=== PATIENT | female | born 1930 | race Caucasian/White ===

== ENCOUNTER 2017-04-22 11:27 | Inpatient (IN) | payer MEDICARE, BC ==
[2017-04-22] MEDS: SODIUM CHLORIDE 0.9% 1L BAG IV* (13:15)
[2017-04-22] MEDS: CEFEPIME 2GM/50 ML (PMX) 50 ML IVPB (13:15)
[2017-04-22] MEDS: HYDROCORTISONE 100 MG INJ IV (13:15)
[2017-04-22 13:26] LABS: ADD MAN DIFF? NO
[2017-04-22] MEDS: ACETAMINOPHEN 325 MG TAB PO (13:27)
[2017-04-22 13:29] LABS: BASOPHIL # 0.1 10^3/ul (0.0-0.1); BASOPHILS % 0.5 % (0.0-2.0); EOSINOPHILS # 0.1 10^3/ul (0.0-0.5); EOSINOPHILS % 0.5 % (0.0-7.0); HEMATOCRIT 43.9 % (37.0-47.0); HEMOGLOBIN 14.9 g/dl (12.0-16.0); LYMPHOCYTES # 0.9 10^3/ul (0.8-2.9); LYMPHOCYTES % 9.7 % (15.0-51.0); MEAN CORPUSCULAR HEMOGLOBIN 28.4 pg (29.0-33.0); MEAN CORPUSCULAR HGB CONC 33.9 g/dl (32.0-37.0); MEAN CORPUSCULAR VOLUME 83.6 fl (82.0-101.0); MEAN PLATELET VOLUME 10.5 fl (7.4-10.4); MONOCYTE # 0.6 10^3/ul (0.3-0.9); MONOCYTES % 6.9 % (0.0-11.0); NEUTROPHIL # 7.6 10^3/ul (1.6-7.5); NEUTROPHILS % 81.9 % (39.0-77.0); PLATELET COUNT 184 10^3/UL (140-415); RED BLOOD COUNT 5.25 10^6/ul (4.20-5.40); RED CELL DISTRIBUTION WIDTH 13.5 % (11.5-14.5)
[2017-04-22 13:29] LABS: WHITE BLOOD COUNT 9.3 10^3/ul (4.8-10.8)
[2017-04-22 13:57] LABS: ADD UMIC YES; UR ASCORBIC ACID NEGATIVE (NEGATIVE); UR BACTERIA FEW /HPF (NONE SEEN); UR BILIRUBIN (Dip) NEGATIVE (NEGATIVE); UR BLOOD (Dip) 2+ mg/dL (NEGATIVE); UR CLARITY CLEAR (CLEAR); UR COLOR YELLOW (YELLOW); UR GLUCOSE (Dip) NEGATIVE (NEGATIVE); UR KETONES (Dip) NEGATIVE (NEGATIVE); UR LEUKOCYTE ESTERASE (Dip) NEGATIVE Leu/ul (NEGATIVE); UR NITRITE (Dip) NEGATIVE (NEGATIVE); UR RBC 107 /HPF (0-5); UR TOTAL PROTEIN (Dip) NEGATIVE (NEGATIVE); UR UROBILINOGEN (Dip) NEGATIVE (NEGATIVE); UR WBC 8 /HPF (0-5)
[2017-04-22] MEDS: VANCOMYCIN 1 GM (PMX) 250 ML IVPB (14:01)
[2017-04-22 14:07] LABS: LACTIC ACID 5.4 mmol/L (0.5-2.0)
[2017-04-22 14:18] LABS: PROTIME 15.4 Sec (11.9-14.9); PT RATIO 1.2
[2017-04-22 14:19] LABS: PARTIAL THROMBOPLASTIN TIME 35.1 Sec (25.0-35.0)
[2017-04-22 14:35] LABS: ALANINE AMINOTRANSFERASE 45 IU/L (13-69); ALBUMIN 3.2 g/dl (3.3-4.9); ALBUMIN/GLOBULIN RATIO 1.18; ALKALINE PHOSPHATASE 79 IU/L (42-121); ANION GAP 16 (8-16); ASPARTATE AMINO TRANSFERASE 89 IU/L (15-46); BILIRUBIN,INDIRECT 0.5 mg/dl (0-1.1); BILIRUBIN,TOTAL 0.5 mg/dl (0.2-1.3); BLOOD UREA NITROGEN 22 mg/dl (7-20); CALCIUM 7.7 mg/dl (8.4-10.2); CARBON DIOXIDE 20 mmol/L (21-31); CHLORIDE 98 mmol/L (97-110); CREATININE 1.55 mg/dl (0.44-1.00); GLUCOSE 70 mg/dl (70-220); MAGNESIUM 1.1 mg/dl (1.7-2.5); POTASSIUM 3.4 mmol/L (3.5-5.1); SODIUM 131 mmol/L (135-144); TOTAL PROTEIN 5.9 g/dl (6.1-8.1)
[2017-04-22 14:45] LABS: TROPONIN-I 0.079 ng/ml (0.00-0.12)
[2017-04-22 15:02] LABS: FREE T4 (FREE THYROXINE) 1.54 ng/dl (0.85-1.93)
[2017-04-22] MEDS: SOD CHLORIDE 0.9% 1,000 ML IV ×3 (15:03→23:07)
[2017-04-22] MEDS ORDERED: ONDANSETRON 4 MG INJ IV ×2 (15:30→16:30)
[2017-04-22] MEDS ORDERED: ACETAMINOPHEN 325 MG TAB PO (15:30)
[2017-04-22] MEDS ORDERED: POTASSIUM CHLORIDE 30 MEQ in SOD CHLORIDE 0.9% 150 ML IVPB (16:30)
[2017-04-22] MEDS: MAGNESIUM SULFATE 2 GM/50 ML 50 ML IVPB (17:38)
[2017-04-22] MEDS: POTASSIUM CHLORIDE (SR) 20 MEQ TAB PO (17:39)
[2017-04-22] MEDS: MAGNESIUM SULFATE 3 GM in DEXTROSE 5% 100 ML IVPB (18:30)
[2017-04-22] MEDS: POTASSIUM CHLORIDE 50 ML IVPB ×6 (18:30→22:00)
[2017-04-22] MEDS: CIPROFLOXACIN 400MG/D5W 200 ML IVPB (20:13)
[2017-04-22 21:02] LABS: LACTIC ACID 2.4 mmol/L (0.5-2.0)
[2017-04-22] MEDS: DEXAMETHASONE 4 MG/ML 1 ML INJ IV (21:43)
[2017-04-22] MEDS: metroNIDAZOLE 500 MG/NS (PMX) 100 ML IVPB (23:08)
[2017-04-23 06:21] LABS: ADD MAN DIFF? NO
[2017-04-23] MEDS: metroNIDAZOLE 500 MG/NS (PMX) 100 ML IVPB ×3 (06:22→21:40)
[2017-04-23 06:35] LABS: WHITE BLOOD COUNT 6.9 10^3/ul (4.8-10.8)
[2017-04-23 06:35] LABS: ABNORMAL IP MESSAGE 1; BASOPHILS % 0.1 % (0.0-2.0); HEMATOCRIT 32.2 % (37.0-47.0); HEMOGLOBIN 10.7 g/dl (12.0-16.0); LYMPHOCYTES # 0.6 10^3/ul (0.8-2.9); LYMPHOCYTES % 8.2 % (15.0-51.0); MEAN CORPUSCULAR HEMOGLOBIN 28.7 pg (29.0-33.0); MEAN CORPUSCULAR HGB CONC 33.2 g/dl (32.0-37.0); MEAN CORPUSCULAR VOLUME 86.3 fl (82.0-101.0); MEAN PLATELET VOLUME 10.8 fl (7.4-10.4); MONOCYTE # 0.3 10^3/ul (0.3-0.9); MONOCYTES % 3.6 % (0.0-11.0); NEUTROPHIL # 6.1 10^3/ul (1.6-7.5); NEUTROPHILS % 87.8 % (39.0-77.0); PLATELET COUNT 161 10^3/UL (140-415); RED BLOOD COUNT 3.73 10^6/ul (4.20-5.40); RED CELL DISTRIBUTION WIDTH 13.9 % (11.5-14.5)
[2017-04-23 06:39] LABS: POSITIVE DIFF @See below
[2017-04-23 07:10] LABS: LACTIC ACID 1.5 mmol/L (0.5-2.0)
[2017-04-23 07:23] LABS: ANION GAP 19 (8-16); BLOOD UREA NITROGEN 16 mg/dl (7-20); CALCIUM 8.2 mg/dl (8.4-10.2); CARBON DIOXIDE 17 mmol/L (21-31); CHLORIDE 108 mmol/L (97-110); CREATININE 0.84 mg/dl (0.44-1.00); GLUCOSE 155 mg/dl (70-220); MAGNESIUM 1.9 mg/dl (1.7-2.5); POTASSIUM 4.1 mmol/L (3.5-5.1); SODIUM 140 mmol/L (135-144)
[2017-04-23 07:57] LABS: HEMOGLOBIN A1C 6.4 % (0-5.9)
[2017-04-23] MEDS: DEXAMETHASONE 4 MG/ML 1 ML INJ IV (09:25)
[2017-04-23] MEDS: SOD CHLORIDE 0.9% 1,000 ML IV ×2 (09:25→18:04)
[2017-04-23] MEDS: ACETAMINOPHEN 325 MG TAB PO (10:18)
[2017-04-23] MEDS: INSULIN ASPART [NOVOLOG] 3 ML PEN SC ×3 (11:50→21:00)
[2017-04-23] MEDS ORDERED: DEXTROSE 50% 50 ML SYRINGE IV ×2 (12:00)
[2017-04-23] MEDS ORDERED: GLUCOSE GEL 15 GRAM TUBE BUCCAL (12:00)
[2017-04-23] MEDS ORDERED: GLUCAGON 1 MG INJ IM (12:00)
[2017-04-23] MEDS ORDERED: GLUCOSE GEL 15 GRAM TUBE PO ×2 (12:00)
[2017-04-23] MEDS: FLUDROCORTISONE 0.1 MG TAB PO (14:30)
[2017-04-23] MEDS: LINAGLIPTIN 5 MG TABLET PO (15:00)
[2017-04-23 15:48] LABS: IRON < 10 ug/dl (35-150)
[2017-04-23 15:52] LABS: TOTAL IRON BINDING CAPACITY 356 ug/dl (241-421)
[2017-04-23 16:18] LABS: FERRITIN 76.1 ng/ml (11.1-264.0)
[2017-04-23] MEDS: CIPROFLOXACIN 400MG/D5W 200 ML IVPB (18:02)
[2017-04-23] MEDS: TIOTROPIUM 18 MCG CAPSULE INHA DEV INH (18:02)
[2017-04-23] MEDS: CYANOCOBALAMIN 1000 MCG INJ IM (18:03)
[2017-04-23] MEDS: HYDROCORTISONE 100 MG INJ IV (21:40)
[2017-04-23] MEDS: SALMETEROL/FLUTICASONE 250/50 INHA INH (21:40)
[2017-04-23] MEDS: HYDROCORTISONE 5 MG TAB PO (21:42)
[2017-04-23] MEDS: METOPROLOL (XL) 25 MG TAB PO (21:43)
[2017-04-23] MEDS: FAMOTIDINE 20 MG TAB PO (21:43)
[2017-04-24] MEDS: SOD CHLORIDE 0.9% 1,000 ML IV ×3 (00:33→16:30)
[2017-04-24] MEDS: ACCU-CHEK XX (00:35)
[2017-04-24] MEDS: HYDROCORTISONE 100 MG INJ IV ×2 (06:11→20:58)
[2017-04-24] MEDS: LEVOTHYROXINE 75 MCG TAB PO (06:11)
[2017-04-24] MEDS: metroNIDAZOLE 500 MG/NS (PMX) 100 ML IVPB ×3 (06:12→21:10)
[2017-04-24 06:37] LABS: ADD MAN DIFF? NO
[2017-04-24 06:40] LABS: HEMATOCRIT 30.2 % (37.0-47.0); HEMOGLOBIN 10.1 g/dl (12.0-16.0); LYMPHOCYTES # 0.7 10^3/ul (0.8-2.9); MEAN CORPUSCULAR HEMOGLOBIN 28.3 pg (29.0-33.0); MEAN CORPUSCULAR HGB CONC 33.4 g/dl (32.0-37.0); MEAN CORPUSCULAR VOLUME 84.6 fl (82.0-101.0); MEAN PLATELET VOLUME 10.7 fl (7.4-10.4); MONOCYTE # 0.4 10^3/ul (0.3-0.9); MONOCYTES % 6.2 % (0.0-11.0); NEUTROPHIL # 5.4 10^3/ul (1.6-7.5); NEUTROPHILS % 83.6 % (39.0-77.0); PLATELET COUNT 155 10^3/UL (140-415); RED BLOOD COUNT 3.57 10^6/ul (4.20-5.40); RED CELL DISTRIBUTION WIDTH 14.3 % (11.5-14.5)
[2017-04-24 06:40] LABS: WHITE BLOOD COUNT 6.5 10^3/ul (4.8-10.8)
[2017-04-24 07:21] LABS: MAGNESIUM 1.6 mg/dl (1.7-2.5)
[2017-04-24 07:31] LABS: ANION GAP 14 (8-16); BLOOD UREA NITROGEN 14 mg/dl (7-20); CALCIUM 8.8 mg/dl (8.4-10.2); CARBON DIOXIDE 24 mmol/L (21-31); CHLORIDE 108 mmol/L (97-110); GLUCOSE 156 mg/dl (70-220); POTASSIUM 3.6 mmol/L (3.5-5.1); SODIUM 142 mmol/L (135-144)
[2017-04-24] MEDS: INSULIN ASPART [NOVOLOG] 3 ML PEN SC ×4 (07:55→20:59)
[2017-04-24] MEDS: TIOTROPIUM 18 MCG CAPSULE INHA DEV INH (09:00)
[2017-04-24] MEDS: FAMOTIDINE 20 MG TAB PO ×2 (09:49→20:59)
[2017-04-24] MEDS: FLUDROCORTISONE 0.1 MG TAB PO (09:49)
[2017-04-24] MEDS: METOPROLOL (XL) 25 MG TAB PO ×2 (09:49→20:58)
[2017-04-24] MEDS: LINAGLIPTIN 5 MG TABLET PO (09:49)
[2017-04-24] MEDS: SALMETEROL/FLUTICASONE 250/50 INHA INH ×2 (09:50→20:57)
[2017-04-24] MEDS: HYDROCORTISONE 5 MG TAB PO ×3 (09:50→22:45)
[2017-04-24] MEDS: PROMETHAZINE/CODEINE 5ML CUP PO ×2 (13:00→21:09)
[2017-04-24] MEDS: MAGNESIUM SULFATE 1 GM/D5W 100 ML IVPB (13:00)
[2017-04-24] MEDS: CIPROFLOXACIN 400MG/D5W 200 ML IVPB (18:15)
[2017-04-25] MEDS: SOD CHLORIDE 0.9% 1,000 ML IV ×2 (00:30→11:28)
[2017-04-25] MEDS: ACCU-CHEK XX (01:49)
[2017-04-25 05:51] LABS: ADD MAN DIFF? NO
[2017-04-25] MEDS: metroNIDAZOLE 500 MG/NS (PMX) 100 ML IVPB ×3 (06:00→22:10)
[2017-04-25] MEDS: ACETAMINOPHEN 325 MG TAB PO ×2 (06:00→20:33)
[2017-04-25] MEDS: LEVOTHYROXINE 75 MCG TAB PO (06:00)
[2017-04-25 06:04] LABS: BASOPHILS % 0.1 % (0.0-2.0); HEMATOCRIT 34.1 % (37.0-47.0); HEMOGLOBIN 11.3 g/dl (12.0-16.0); LYMPHOCYTES # 0.8 10^3/ul (0.8-2.9); LYMPHOCYTES % 8.5 % (15.0-51.0); MEAN CORPUSCULAR HEMOGLOBIN 28.2 pg (29.0-33.0); MEAN CORPUSCULAR HGB CONC 33.1 g/dl (32.0-37.0); MEAN PLATELET VOLUME 10.9 fl (7.4-10.4); MONOCYTE # 0.4 10^3/ul (0.3-0.9); MONOCYTES % 4.5 % (0.0-11.0); NEUTROPHIL # 8.1 10^3/ul (1.6-7.5); NEUTROPHILS % 86.5 % (39.0-77.0); PLATELET COUNT 140 10^3/UL (140-415); RED BLOOD COUNT 4.01 10^6/ul (4.20-5.40); RED CELL DISTRIBUTION WIDTH 14.5 % (11.5-14.5)
[2017-04-25 06:04] LABS: WHITE BLOOD COUNT 9.4 10^3/ul (4.8-10.8)
[2017-04-25] MEDS ORDERED: ALBUTEROL/IPRATROPIUM (NEB) 3 ML AMP (06:12)
[2017-04-25] MEDS: ALBUTEROL/IPRATROPIUM (NEB) 3 ML AMP HHN ×2 (06:19→19:16)
[2017-04-25] MEDS: HYDROCORTISONE 5 MG TAB PO ×3 (06:21→20:33)
[2017-04-25 06:54] LABS: ANION GAP 16 (8-16); BLOOD UREA NITROGEN 13 mg/dl (7-20); CALCIUM 8.1 mg/dl (8.4-10.2); CARBON DIOXIDE 21 mmol/L (21-31); CHLORIDE 106 mmol/L (97-110); CREATININE 0.58 mg/dl (0.44-1.00); GLUCOSE 162 mg/dl (70-220); POTASSIUM 3.1 mmol/L (3.5-5.1); SODIUM 140 mmol/L (135-144)
[2017-04-25 07:06] LABS: POSITIVE DIFF @See below
[2017-04-25 07:43] LABS: MAGNESIUM 1.4 mg/dl (1.7-2.5)
[2017-04-25] MEDS: INSULIN ASPART [NOVOLOG] 3 ML PEN SC ×4 (07:50→21:00)
[2017-04-25] MEDS: FAMOTIDINE 20 MG TAB PO ×2 (08:52→20:33)
[2017-04-25] MEDS: LINAGLIPTIN 5 MG TABLET PO (08:53)
[2017-04-25] MEDS: FLUDROCORTISONE 0.1 MG TAB PO (08:53)
[2017-04-25] MEDS: METOPROLOL (XL) 25 MG TAB PO ×2 (08:54→20:34)
[2017-04-25] MEDS: SALMETEROL/FLUTICASONE 250/50 INHA INH ×3 (11:05→20:33)
[2017-04-25] MEDS: HYDROCORTISONE 100 MG INJ IV ×2 (11:05→20:33)
[2017-04-25] MEDS ORDERED: POTASSIUM CHLORIDE (SR) 20 MEQ TAB PO (12:04)
[2017-04-25] MEDS: POTASSIUM CHLORIDE 20 MEQ POWDER FOR ORAL SOLN PO (12:34)
[2017-04-25] MEDS: TIOTROPIUM 18 MCG CAPSULE INHA DEV INH (12:35)
[2017-04-25] MEDS: MAGNESIUM SULFATE 2 GM/50 ML 50 ML IVPB (15:06)
[2017-04-25] MEDS: CIPROFLOXACIN 400MG/D5W 200 ML IVPB (18:02)
[2017-04-26] MEDS: ACCU-CHEK XX (02:00)
[2017-04-26] MEDS: ACETAMINOPHEN 325 MG TAB PO ×2 (04:57→17:51)
[2017-04-26 05:45] LABS: ADD MAN DIFF? NO
[2017-04-26 05:54] LABS: ABNORMAL IP MESSAGE 1; BASOPHILS % 0.2 % (0.0-2.0); HEMOGLOBIN 13.2 g/dl (12.0-16.0); LYMPHOCYTES # 0.6 10^3/ul (0.8-2.9); LYMPHOCYTES % 9.1 % (15.0-51.0); MEAN CORPUSCULAR HEMOGLOBIN 28.4 pg (29.0-33.0); MEAN CORPUSCULAR HGB CONC 34.7 g/dl (32.0-37.0); MEAN CORPUSCULAR VOLUME 81.9 fl (82.0-101.0); MONOCYTE # 0.3 10^3/ul (0.3-0.9); MONOCYTES % 3.9 % (0.0-11.0); NEUTROPHIL # 5.6 10^3/ul (1.6-7.5); NEUTROPHILS % 86.5 % (39.0-77.0); PLATELET COUNT 164 10^3/UL (140-415); RED BLOOD COUNT 4.64 10^6/ul (4.20-5.40); RED CELL DISTRIBUTION WIDTH 13.9 % (11.5-14.5)
[2017-04-26 05:54] LABS: WHITE BLOOD COUNT 6.5 10^3/ul (4.8-10.8)
[2017-04-26 05:57] LABS: POSITIVE DIFF @See below
[2017-04-26 06:02] LABS: PROTIME 13.3 Sec (11.9-14.9)
[2017-04-26 06:03] LABS: PARTIAL THROMBOPLASTIN TIME 29.4 Sec (25.0-35.0)
[2017-04-26 06:07] LABS: PHOSPHORUS 2.2 mg/dl (2.5-4.9)
[2017-04-26] MEDS: LEVOTHYROXINE 75 MCG TAB PO (06:20)
[2017-04-26] MEDS: HYDROCORTISONE 5 MG TAB PO ×3 (06:20→21:57)
[2017-04-26] MEDS: metroNIDAZOLE 500 MG/NS (PMX) 100 ML IVPB ×3 (06:20→23:10)
[2017-04-26 06:26] LABS: ALANINE AMINOTRANSFERASE 51 IU/L (13-69); ALBUMIN 3.6 g/dl (3.3-4.9); ALBUMIN/GLOBULIN RATIO 1.28; ALKALINE PHOSPHATASE 82 IU/L (42-121); ANION GAP 14 (8-16); ASPARTATE AMINO TRANSFERASE 77 IU/L (15-46); BILIRUBIN,INDIRECT 0.2 mg/dl (0-1.1); BILIRUBIN,TOTAL 0.2 mg/dl (0.2-1.3); BLOOD UREA NITROGEN 6 mg/dl (7-20); CALCIUM 7.9 mg/dl (8.4-10.2); CARBON DIOXIDE 32 mmol/L (21-31); CHLORIDE 92 mmol/L (97-110); CREATININE 0.53 mg/dl (0.44-1.00); GLUCOSE 133 mg/dl (70-220); SODIUM 136 mmol/L (135-144); TOTAL PROTEIN 6.4 g/dl (6.1-8.1)
[2017-04-26 06:53] LABS: POTASSIUM 1.9 mmol/L (3.5-5.1)
[2017-04-26] MEDS: INSULIN ASPART [NOVOLOG] 3 ML PEN SC ×4 (07:50→21:00)
[2017-04-26 07:59] LABS: MAGNESIUM 1.4 mg/dl (1.7-2.5)
[2017-04-26] MEDS: SALMETEROL/FLUTICASONE 250/50 INHA INH ×2 (09:16→21:59)
[2017-04-26] MEDS: HYDROCORTISONE 100 MG INJ IV ×2 (09:17→21:55)
[2017-04-26] MEDS: LINAGLIPTIN 5 MG TABLET PO (09:17)
[2017-04-26] MEDS: SODIUM CHLORIDE 0.45% IV ×2 (09:17→12:00)
[2017-04-26] MEDS: POTASSIUM CHLORIDE IV ×2 (09:17→12:00)
[2017-04-26] MEDS: TIOTROPIUM 18 MCG CAPSULE INHA DEV INH (09:18)
[2017-04-26] MEDS: FAMOTIDINE 20 MG TAB PO ×2 (09:19→21:59)
[2017-04-26] MEDS: METOPROLOL (XL) 25 MG TAB PO ×2 (09:19→22:00)
[2017-04-26] MEDS: FLUDROCORTISONE 0.1 MG TAB PO (09:20)
[2017-04-26] MEDS: CHOLESTYRAMINE 4 GM PACKET PO (10:00)
[2017-04-26] MEDS: POTASSIUM CHLORIDE (SR) 20 MEQ TAB PO ×2 (13:00→21:59)
[2017-04-26] MEDS ORDERED: POTASSIUM CHLORIDE (SR) 20 MEQ TAB PO (13:30)
[2017-04-26] MEDS: MAGNESIUM SULFATE 4 GM/100 ML 100 ML IVPB (17:35)
[2017-04-26] MEDS: CIPROFLOXACIN 400MG/D5W 200 ML IVPB (21:59)
[2017-04-27] MEDS: ACCU-CHEK XX (02:00)
[2017-04-27] MEDS: ACETAMINOPHEN 325 MG TAB PO (04:58)
[2017-04-27 05:15] LABS: ADD MAN DIFF? NO
[2017-04-27 05:18] LABS: BASOPHILS % 0.2 % (0.0-2.0); HEMATOCRIT 44.5 % (37.0-47.0); HEMOGLOBIN 15.3 g/dl (12.0-16.0); LYMPHOCYTES # 0.7 10^3/ul (0.8-2.9); LYMPHOCYTES % 18.1 % (15.0-51.0); MEAN CORPUSCULAR HEMOGLOBIN 28.1 pg (29.0-33.0); MEAN CORPUSCULAR HGB CONC 34.4 g/dl (32.0-37.0); MEAN CORPUSCULAR VOLUME 81.8 fl (82.0-101.0); MEAN PLATELET VOLUME 11.2 fl (7.4-10.4); MONOCYTE # 0.2 10^3/ul (0.3-0.9); MONOCYTES % 5.1 % (0.0-11.0); NEUTROPHIL # 3.1 10^3/ul (1.6-7.5); NEUTROPHILS % 76.1 % (39.0-77.0); PLATELET COUNT 157 10^3/UL (140-415); RED BLOOD COUNT 5.44 10^6/ul (4.20-5.40)
[2017-04-27 05:18] LABS: WHITE BLOOD COUNT 4.1 10^3/ul (4.8-10.8)
[2017-04-27 06:05] LABS: MAGNESIUM 2.2 mg/dl (1.7-2.5)
[2017-04-27 06:05] LABS: PHOSPHORUS 1.3 mg/dl (2.5-4.9)
[2017-04-27 06:11] LABS: ANION GAP 15 (8-16); BLOOD UREA NITROGEN 11 mg/dl (7-20); CALCIUM 8.3 mg/dl (8.4-10.2); CARBON DIOXIDE 35 mmol/L (21-31); CHLORIDE 89 mmol/L (97-110); CREATININE 0.64 mg/dl (0.44-1.00); GLUCOSE 118 mg/dl (70-220); SODIUM 137 mmol/L (135-144)
[2017-04-27] MEDS: metroNIDAZOLE 500 MG/NS (PMX) 100 ML IVPB ×3 (06:48→21:43)
[2017-04-27] MEDS: LEVOTHYROXINE 75 MCG TAB PO (06:48)
[2017-04-27] MEDS: HYDROCORTISONE 5 MG TAB PO ×3 (06:49→21:42)
[2017-04-27 07:20] LABS: POTASSIUM 2.2 mmol/L (3.5-5.1)
[2017-04-27] MEDS: INSULIN ASPART [NOVOLOG] 3 ML PEN SC ×4 (07:50→21:00)
[2017-04-27] MEDS: METOPROLOL (XL) 25 MG TAB PO ×2 (09:00→22:01)
[2017-04-27] MEDS: SALMETEROL/FLUTICASONE 250/50 INHA INH ×2 (09:19→20:34)
[2017-04-27] MEDS: TIOTROPIUM 18 MCG CAPSULE INHA DEV INH (09:20)
[2017-04-27] MEDS: HYDROCORTISONE 100 MG INJ IV ×2 (09:20→21:43)
[2017-04-27] MEDS: LINAGLIPTIN 5 MG TABLET PO (09:21)
[2017-04-27] MEDS: POTASSIUM CHLORIDE (SR) 20 MEQ TAB PO (09:21)
[2017-04-27] MEDS: FAMOTIDINE 20 MG TAB PO ×2 (09:21→21:42)
[2017-04-27] MEDS: FLUDROCORTISONE 0.1 MG TAB PO (09:31)
[2017-04-27] MEDS: POTASSIUM CHLORIDE 50 ML IVPB ×8 (09:43→20:34)
[2017-04-27] MEDS ORDERED: NEUTRA-PHOS 250 MG PACKET PO (10:30)
[2017-04-27] MEDS: NEUTRA-PHOS 250 MG PACKET PO ×2 (11:26→20:35)
[2017-04-27] MEDS ORDERED: POTASSIUM CHLORIDE 20 MEQ POWDER FOR ORAL SOLN PO (14:00)
[2017-04-27] MEDS: CYANOCOBALAMIN 1000 MCG INJ IM (17:25)
[2017-04-27] MEDS: CIPROFLOXACIN 500 MG TAB PO (17:26)
[2017-04-28 01:56] LABS: POTASSIUM 3.2 mmol/L (3.5-5.1)
[2017-04-28] MEDS: ACCU-CHEK XX (02:00)
[2017-04-28] MEDS: POTASSIUM CHLORIDE (SR) 20 MEQ TAB PO ×3 (03:27→22:22)
[2017-04-28 05:25] LABS: ADD MAN DIFF? NO
[2017-04-28 05:31] LABS: BASOPHILS % 0.2 % (0.0-2.0); EOSINOPHILS % 0.2 % (0.0-7.0); HEMOGLOBIN 12.7 g/dl (12.0-16.0); LYMPHOCYTES # 0.9 10^3/ul (0.8-2.9); LYMPHOCYTES % 18.3 % (15.0-51.0); MEAN CORPUSCULAR HEMOGLOBIN 28.5 pg (29.0-33.0); MEAN CORPUSCULAR HGB CONC 33.4 g/dl (32.0-37.0); MEAN CORPUSCULAR VOLUME 85.2 fl (82.0-101.0); MEAN PLATELET VOLUME 10.9 fl (7.4-10.4); MONOCYTE # 0.4 10^3/ul (0.3-0.9); MONOCYTES % 8.4 % (0.0-11.0); NEUTROPHIL # 3.5 10^3/ul (1.6-7.5); NEUTROPHILS % 72.3 % (39.0-77.0); PLATELET COUNT 180 10^3/UL (140-415); RED BLOOD COUNT 4.46 10^6/ul (4.20-5.40); RED CELL DISTRIBUTION WIDTH 14.4 % (11.5-14.5)
[2017-04-28 05:31] LABS: WHITE BLOOD COUNT 4.9 10^3/ul (4.8-10.8)
[2017-04-28 05:34] LABS: POSITIVE DIFF @See below
[2017-04-28 05:46] LABS: ANION GAP 13 (8-16); BLOOD UREA NITROGEN 17 mg/dl (7-20); CALCIUM 8.1 mg/dl (8.4-10.2); CARBON DIOXIDE 31 mmol/L (21-31); CHLORIDE 99 mmol/L (97-110); CREATININE 0.61 mg/dl (0.44-1.00); GLUCOSE 105 mg/dl (70-220); POTASSIUM 3.4 mmol/L (3.5-5.1); SODIUM 140 mmol/L (135-144)
[2017-04-28 05:51] LABS: PHOSPHORUS 2.1 mg/dl (2.5-4.9)
[2017-04-28 05:51] LABS: MAGNESIUM 1.7 mg/dl (1.7-2.5)
[2017-04-28] MEDS: metroNIDAZOLE 500 MG/NS (PMX) 100 ML IVPB ×2 (07:04→14:26)
[2017-04-28] MEDS: HYDROCORTISONE 5 MG TAB PO ×3 (07:05→22:22)
[2017-04-28] MEDS: LEVOTHYROXINE 75 MCG TAB PO (07:05)
[2017-04-28] MEDS: CIPROFLOXACIN 500 MG TAB PO (07:05)
[2017-04-28] MEDS: INSULIN ASPART [NOVOLOG] 3 ML PEN SC ×4 (07:50→21:00)
[2017-04-28] MEDS: CHOLESTYRAMINE 4 GM PACKET PO (09:00)
[2017-04-28] MEDS: SALMETEROL/FLUTICASONE 250/50 INHA INH ×2 (10:07→21:00)
[2017-04-28] MEDS: TIOTROPIUM 18 MCG CAPSULE INHA DEV INH (10:09)
[2017-04-28] MEDS: FAMOTIDINE 20 MG TAB PO (10:10)
[2017-04-28] MEDS: LINAGLIPTIN 5 MG TABLET PO (10:10)
[2017-04-28] MEDS: HYDROCORTISONE 100 MG INJ IV ×2 (10:11→22:21)
[2017-04-28] MEDS: FLUDROCORTISONE 0.1 MG TAB PO (10:12)
[2017-04-28] MEDS: NEUTRA-PHOS 250 MG PACKET PO ×3 (10:13→22:22)
[2017-04-28] MEDS: METOPROLOL (XL) 25 MG TAB PO ×2 (10:13→22:25)
[2017-04-28] MEDS: CEFTRIAXONE 1 GM/50 ML (PMX) 50 ML IVPB (17:17)
[2017-04-29] MEDS: ACCU-CHEK XX (01:52)
[2017-04-29 05:13] LABS: HEMATOCRIT 34.6 % (37.0-47.0); HEMOGLOBIN 11.4 g/dl (12.0-16.0); MEAN CORPUSCULAR HEMOGLOBIN 28.2 pg (29.0-33.0); MEAN CORPUSCULAR HGB CONC 32.9 g/dl (32.0-37.0); MEAN CORPUSCULAR VOLUME 85.6 fl (82.0-101.0); MEAN PLATELET VOLUME 10.3 fl (7.4-10.4); PLATELET COUNT 205 10^3/UL (140-415); RED BLOOD COUNT 4.04 10^6/ul (4.20-5.40); RED CELL DISTRIBUTION WIDTH 14.4 % (11.5-14.5)
[2017-04-29 05:13] LABS: WHITE BLOOD COUNT 4.4 10^3/ul (4.8-10.8)
[2017-04-29 05:27] LABS: POSITIVE DIFF @See below
[2017-04-29 05:28] LABS: ADD MAN DIFF? YES
[2017-04-29 05:33] LABS: ANION GAP 12 (8-16); BLOOD UREA NITROGEN 17 mg/dl (7-20); CALCIUM 7.8 mg/dl (8.4-10.2); CARBON DIOXIDE 28 mmol/L (21-31); CHLORIDE 106 mmol/L (97-110); CREATININE 0.48 mg/dl (0.44-1.00); GLUCOSE 102 mg/dl (70-220); POTASSIUM 4.2 mmol/L (3.5-5.1); SODIUM 142 mmol/L (135-144)
[2017-04-29 06:07] LABS: PHOSPHORUS 2.5 mg/dl (2.5-4.9)
[2017-04-29 06:07] LABS: MAGNESIUM 1.5 mg/dl (1.7-2.5)
[2017-04-29] MEDS: LEVOTHYROXINE 75 MCG TAB PO (06:31)
[2017-04-29] MEDS: HYDROCORTISONE 5 MG TAB PO ×3 (06:31→20:52)
[2017-04-29] MEDS: INSULIN ASPART [NOVOLOG] 3 ML PEN SC ×4 (07:50→20:54)
[2017-04-29] MEDS: LINAGLIPTIN 5 MG TABLET PO (09:20)
[2017-04-29] MEDS: NEUTRA-PHOS 250 MG PACKET PO ×3 (09:21→20:52)
[2017-04-29] MEDS: FLUDROCORTISONE 0.1 MG TAB PO (09:21)
[2017-04-29] MEDS: TIOTROPIUM 18 MCG CAPSULE INHA DEV INH (09:21)
[2017-04-29] MEDS: HYDROCORTISONE 100 MG INJ IV ×2 (09:22→21:00)
[2017-04-29] MEDS: SALMETEROL/FLUTICASONE 250/50 INHA INH ×2 (09:22→20:51)
[2017-04-29] MEDS: CHOLESTYRAMINE 4 GM PACKET PO (09:22)
[2017-04-29] MEDS: METOPROLOL (XL) 25 MG TAB PO ×2 (09:23→20:54)
[2017-04-29 11:07] LABS: BAND NEUTROPHILS #M 0.1 10^3/ul (0.0-0.6); BAND NEUTROPHILS % (M) 3 % (0-4); BURR CELLS 1+ (0-0); LYMPHOCYTES #M 1.1 10^3/ul (0.8-2.9); LYMPHOCYTES % (M) 26 % (15-51); MONOCYTE #M 0.1 10^3/ul (0.3-0.9); MONOCYTES % (M) 4 % (0-11); PLATELET ESTIMATE NORMAL; POIKILOCYTOSIS 1+ (0-0); REACTIVE LYMPHOCYTES% (M) 1 % (0-0); SEG NEUT #M 2.9 10^3/ul (1.7-7.5); SEGMENTED NEUTROPHILS (M) % 66 % (39-77); SMUDGE%M 12 % (0-0)
[2017-04-29] MEDS: MAGNESIUM SULFATE 3 GM in DEXTROSE 5% 100 ML IVPB (12:33)
[2017-04-29] MEDS: CEFTRIAXONE 1 GM/50 ML (PMX) 50 ML IVPB (16:49)
[2017-04-30] MEDS: ACCU-CHEK XX (02:00)
[2017-04-30 06:04] LABS: ANION GAP 10 (8-16); BLOOD UREA NITROGEN 15 mg/dl (7-20); CALCIUM 8.2 mg/dl (8.4-10.2); CARBON DIOXIDE 32 mmol/L (21-31); CHLORIDE 100 mmol/L (97-110); CREATININE 0.44 mg/dl (0.44-1.00); GLUCOSE 133 mg/dl (70-220); MAGNESIUM 1.7 mg/dl (1.7-2.5); PHOSPHORUS 3.4 mg/dl (2.5-4.9); POTASSIUM 3.2 mmol/L (3.5-5.1); SODIUM 139 mmol/L (135-144)
[2017-04-30] MEDS: LEVOTHYROXINE 75 MCG TAB PO (06:25)
[2017-04-30] MEDS: HYDROCORTISONE 5 MG TAB PO ×3 (06:29→21:12)
[2017-04-30] MEDS: LINAGLIPTIN 5 MG TABLET PO (09:23)
[2017-04-30] MEDS: TIOTROPIUM 18 MCG CAPSULE INHA DEV INH (09:23)
[2017-04-30] MEDS: CHOLESTYRAMINE 4 GM PACKET PO (09:24)
[2017-04-30] MEDS: SALMETEROL/FLUTICASONE 250/50 INHA INH ×2 (09:24→21:12)
[2017-04-30] MEDS: METOPROLOL (XL) 25 MG TAB PO (09:24)
[2017-04-30] MEDS: NEUTRA-PHOS 250 MG PACKET PO ×3 (09:24→21:11)
[2017-04-30] MEDS: HYDROCORTISONE 100 MG INJ IV (09:24)
[2017-04-30] MEDS: FLUDROCORTISONE 0.1 MG TAB PO (09:25)
[2017-04-30] MEDS: INSULIN ASPART [NOVOLOG] 3 ML PEN SC ×4 (09:26→21:00)
[2017-04-30] MEDS: POTASSIUM CHLORIDE 50 ML IVPB ×3 (12:22→14:55)
[2017-04-30] MEDS: POTASSIUM CHLORIDE (SR) 20 MEQ TAB PO (15:40)
[2017-04-30] MEDS: CEFTRIAXONE 1 GM/50 ML (PMX) 50 ML IVPB (15:40)
[2017-04-30] MEDS: MAGNESIUM OXIDE 400 MG TAB PO (21:12)
[2017-04-30] MEDS: VERAPAMIL (SR) 180 MG TAB PO (22:22)
[2017-05-01] MEDS: ACCU-CHEK XX (02:00)
[2017-05-01] MEDS: LEVOTHYROXINE 75 MCG TAB PO (06:07)
[2017-05-01 06:11] LABS: ANION GAP 11 (8-16); BLOOD UREA NITROGEN 15 mg/dl (7-20); CALCIUM 8.1 mg/dl (8.4-10.2); CARBON DIOXIDE 31 mmol/L (21-31); CHLORIDE 101 mmol/L (97-110); CREATININE 0.45 mg/dl (0.44-1.00); GLUCOSE 87 mg/dl (70-220); MAGNESIUM 1.5 mg/dl (1.7-2.5); PHOSPHORUS 3.3 mg/dl (2.5-4.9); POTASSIUM 3.2 mmol/L (3.5-5.1); SODIUM 140 mmol/L (135-144)
[2017-05-01] MEDS: INSULIN ASPART [NOVOLOG] 3 ML PEN SC ×4 (07:50→21:00)
[2017-05-01] MEDS: HYDROCORTISONE 5 MG TAB PO ×3 (08:06→21:22)
[2017-05-01] MEDS: CHOLESTYRAMINE 4 GM PACKET PO (09:00)
[2017-05-01] MEDS: NEUTRA-PHOS 250 MG PACKET PO ×3 (09:23→21:21)
[2017-05-01] MEDS: FLUDROCORTISONE 0.1 MG TAB PO (09:23)
[2017-05-01] MEDS: MAGNESIUM OXIDE 400 MG TAB PO ×2 (09:24→21:22)
[2017-05-01] MEDS: LINAGLIPTIN 5 MG TABLET PO (09:24)
[2017-05-01] MEDS: SALMETEROL/FLUTICASONE 250/50 INHA INH ×2 (09:25→21:24)
[2017-05-01] MEDS: TIOTROPIUM 18 MCG CAPSULE INHA DEV INH (09:25)
[2017-05-01] MEDS: MAGNESIUM SULFATE 4 GM/100 ML 100 ML IVPB (12:17)
[2017-05-01] MEDS: POTASSIUM CHLORIDE (SR) 20 MEQ TAB PO ×2 (12:53→21:22)
[2017-05-01] MEDS: CEFTRIAXONE 1 GM/50 ML (PMX) 50 ML IVPB (16:44)
[2017-05-01] MEDS ORDERED: LOPERAMIDE 2 MG CAP PO (17:30)
[2017-05-01] MEDS: VERAPAMIL (SR) 180 MG TAB PO (21:23)
[2017-05-02] MEDS: ACCU-CHEK XX (02:00)
[2017-05-02 05:50] LABS: ADD MAN DIFF? NO
[2017-05-02] MEDS: LEVOTHYROXINE 75 MCG TAB PO (06:01)
[2017-05-02 06:05] LABS: BASOPHILS % 0.1 % (0.0-2.0); EOSINOPHILS % 0.4 % (0.0-7.0); HEMATOCRIT 33.7 % (37.0-47.0); HEMOGLOBIN 10.8 g/dl (12.0-16.0); LYMPHOCYTES # 1.4 10^3/ul (0.8-2.9); LYMPHOCYTES % 19.6 % (15.0-51.0); MEAN CORPUSCULAR HEMOGLOBIN 27.8 pg (29.0-33.0); MEAN CORPUSCULAR VOLUME 86.9 fl (82.0-101.0); MEAN PLATELET VOLUME 10.8 fl (7.4-10.4); MONOCYTE # 0.7 10^3/ul (0.3-0.9); MONOCYTES % 10.1 % (0.0-11.0); NEUTROPHIL # 4.8 10^3/ul (1.6-7.5); NEUTROPHILS % 68.9 % (39.0-77.0); PLATELET COUNT 339 10^3/UL (140-415); RED BLOOD COUNT 3.88 10^6/ul (4.20-5.40); RED CELL DISTRIBUTION WIDTH 14.4 % (11.5-14.5)
[2017-05-02 06:53] LABS: ANION GAP 13 (8-16); BLOOD UREA NITROGEN 18 mg/dl (7-20); CARBON DIOXIDE 29 mmol/L (21-31); CHLORIDE 104 mmol/L (97-110); GLUCOSE 114 mg/dl (70-220); MAGNESIUM 2.1 mg/dl (1.7-2.5); PHOSPHORUS 3.4 mg/dl (2.5-4.9); POTASSIUM 4.4 mmol/L (3.5-5.1); SODIUM 142 mmol/L (135-144)
[2017-05-02] MEDS: INSULIN ASPART [NOVOLOG] 3 ML PEN SC ×4 (07:50→20:11)
[2017-05-02] MEDS: LINAGLIPTIN 5 MG TABLET PO (08:35)
[2017-05-02] MEDS: MAGNESIUM OXIDE 400 MG TAB PO (08:35)
[2017-05-02] MEDS: TIOTROPIUM 18 MCG CAPSULE INHA DEV INH (08:35)
[2017-05-02] MEDS: POTASSIUM CHLORIDE (SR) 20 MEQ TAB PO (08:35)
[2017-05-02] MEDS: CHOLESTYRAMINE 4 GM PACKET PO (08:36)
[2017-05-02] MEDS: SALMETEROL/FLUTICASONE 250/50 INHA INH ×2 (08:36→20:09)
[2017-05-02] MEDS: FLUDROCORTISONE 0.1 MG TAB PO (08:36)
[2017-05-02] MEDS: HYDROCORTISONE 5 MG TAB PO ×3 (08:36→20:10)
[2017-05-02] MEDS: NEUTRA-PHOS 250 MG PACKET PO (08:37)
[2017-05-02] MEDS: VERAPAMIL (SR) 180 MG TAB PO (20:10)
[2017-05-03] MEDS: ACCU-CHEK XX (02:00)
[2017-05-03 05:58] LABS: ADD MAN DIFF? NO
[2017-05-03 05:59] LABS: WHITE BLOOD COUNT 7.2 10^3/ul (4.8-10.8)
[2017-05-03 05:59] LABS: BASOPHILS % 0.3 % (0.0-2.0); EOSINOPHILS # 0.1 10^3/ul (0.0-0.5); EOSINOPHILS % 1.3 % (0.0-7.0); HEMATOCRIT 31.9 % (37.0-47.0); HEMOGLOBIN 10.4 g/dl (12.0-16.0); LYMPHOCYTES # 1.6 10^3/ul (0.8-2.9); LYMPHOCYTES % 22.8 % (15.0-51.0); MEAN CORPUSCULAR HGB CONC 32.6 g/dl (32.0-37.0); MEAN PLATELET VOLUME 10.3 fl (7.4-10.4); MONOCYTE # 0.6 10^3/ul (0.3-0.9); MONOCYTES % 8.6 % (0.0-11.0); NEUTROPHIL # 4.8 10^3/ul (1.6-7.5); NEUTROPHILS % 65.9 % (39.0-77.0); PLATELET COUNT 391 10^3/UL (140-415); RED BLOOD COUNT 3.71 10^6/ul (4.20-5.40); RED CELL DISTRIBUTION WIDTH 14.6 % (11.5-14.5)
[2017-05-03] MEDS: LEVOTHYROXINE 75 MCG TAB PO (06:29)
[2017-05-03] MEDS: PROMETHAZINE/CODEINE 5ML CUP PO (06:29)
[2017-05-03 06:48] LABS: ANION GAP 13 (8-16); BLOOD UREA NITROGEN 13 mg/dl (7-20); CALCIUM 8.5 mg/dl (8.4-10.2); CARBON DIOXIDE 27 mmol/L (21-31); CHLORIDE 101 mmol/L (97-110); CREATININE 0.51 mg/dl (0.44-1.00); GLUCOSE 128 mg/dl (70-220); MAGNESIUM 1.6 mg/dl (1.7-2.5); PHOSPHORUS 3.4 mg/dl (2.5-4.9); POTASSIUM 4.3 mmol/L (3.5-5.1); SODIUM 137 mmol/L (135-144)
[2017-05-03] MEDS: INSULIN ASPART [NOVOLOG] 3 ML PEN SC ×4 (07:50→20:22)
[2017-05-03] MEDS: SALMETEROL/FLUTICASONE 250/50 INHA INH ×2 (10:40→20:22)
[2017-05-03] MEDS: TIOTROPIUM 18 MCG CAPSULE INHA DEV INH (10:41)
[2017-05-03] MEDS: CHOLESTYRAMINE 4 GM PACKET PO (10:42)
[2017-05-03] MEDS: LINAGLIPTIN 5 MG TABLET PO (10:42)
[2017-05-03] MEDS: HYDROCORTISONE 5 MG TAB PO ×3 (10:42→20:22)
[2017-05-03] MEDS: FLUDROCORTISONE 0.1 MG TAB PO (10:42)
[2017-05-03] MEDS: MAGNESIUM SULFATE 2 GM/50 ML 50 ML IVPB (14:25)
[2017-05-03] MEDS: VERAPAMIL (SR) 180 MG TAB PO (20:22)
[2017-05-04] MEDS: ACCU-CHEK XX (01:29)
[2017-05-04] MEDS: PROMETHAZINE/CODEINE 5ML CUP PO (04:47)
[2017-05-04] MEDS: LEVOTHYROXINE 75 MCG TAB PO (04:48)
[2017-05-04 05:42] LABS: ADD MAN DIFF? NO
[2017-05-04 05:48] LABS: WHITE BLOOD COUNT 8.3 10^3/ul (4.8-10.8)
[2017-05-04 05:48] LABS: BASOPHILS % 0.4 % (0.0-2.0); EOSINOPHILS # 0.1 10^3/ul (0.0-0.5); EOSINOPHILS % 0.6 % (0.0-7.0); HEMATOCRIT 31.6 % (37.0-47.0); HEMOGLOBIN 10.2 g/dl (12.0-16.0); LYMPHOCYTES # 1.7 10^3/ul (0.8-2.9); LYMPHOCYTES % 20.7 % (15.0-51.0); MEAN CORPUSCULAR HGB CONC 32.3 g/dl (32.0-37.0); MEAN CORPUSCULAR VOLUME 86.8 fl (82.0-101.0); MEAN PLATELET VOLUME 10.4 fl (7.4-10.4); MONOCYTE # 0.7 10^3/ul (0.3-0.9); MONOCYTES % 8.3 % (0.0-11.0); NEUTROPHIL # 5.7 10^3/ul (1.6-7.5); PLATELET COUNT 455 10^3/UL (140-415); RED BLOOD COUNT 3.64 10^6/ul (4.20-5.40); RED CELL DISTRIBUTION WIDTH 14.8 % (11.5-14.5)
[2017-05-04 06:15] LABS: ANION GAP 14 (8-16); BLOOD UREA NITROGEN 20 mg/dl (7-20); CALCIUM 8.4 mg/dl (8.4-10.2); CARBON DIOXIDE 26 mmol/L (21-31); CHLORIDE 101 mmol/L (97-110); CREATININE 0.56 mg/dl (0.44-1.00); GLUCOSE 98 mg/dl (70-220); MAGNESIUM 1.9 mg/dl (1.7-2.5); POTASSIUM 4.4 mmol/L (3.5-5.1); SODIUM 137 mmol/L (135-144)
[2017-05-04] MEDS: INSULIN ASPART [NOVOLOG] 3 ML PEN SC ×4 (07:50→20:23)
[2017-05-04] MEDS: HYDROCORTISONE 5 MG TAB PO ×3 (08:31→20:13)
[2017-05-04] MEDS: TIOTROPIUM 18 MCG CAPSULE INHA DEV INH (08:33)
[2017-05-04] MEDS: SALMETEROL/FLUTICASONE 250/50 INHA INH ×2 (08:33→20:24)
[2017-05-04] MEDS: FLUDROCORTISONE 0.1 MG TAB PO (08:40)
[2017-05-04] MEDS: LINAGLIPTIN 5 MG TABLET PO (08:43)
[2017-05-04] MEDS: CHOLESTYRAMINE 4 GM PACKET PO (08:44)
[2017-05-04] MEDS: VERAPAMIL (SR) 180 MG TAB PO (20:13)
[2017-05-05] MEDS: PROMETHAZINE/CODEINE 5ML CUP PO (00:47)
[2017-05-05] MEDS: ACCU-CHEK XX (00:59)
[2017-05-05 05:30] LABS: ADD MAN DIFF? NO
[2017-05-05 05:35] LABS: BASOPHILS % 0.4 % (0.0-2.0); EOSINOPHILS # 0.1 10^3/ul (0.0-0.5); EOSINOPHILS % 1.2 % (0.0-7.0); HEMATOCRIT 30.2 % (37.0-47.0); LYMPHOCYTES # 1.9 10^3/ul (0.8-2.9); LYMPHOCYTES % 25.7 % (15.0-51.0); MEAN CORPUSCULAR HEMOGLOBIN 28.3 pg (29.0-33.0); MEAN CORPUSCULAR HGB CONC 33.1 g/dl (32.0-37.0); MEAN CORPUSCULAR VOLUME 85.6 fl (82.0-101.0); MONOCYTE # 0.8 10^3/ul (0.3-0.9); MONOCYTES % 10.9 % (0.0-11.0); NEUTROPHIL # 4.5 10^3/ul (1.6-7.5); PLATELET COUNT 506 10^3/UL (140-415); RED BLOOD COUNT 3.53 10^6/ul (4.20-5.40); RED CELL DISTRIBUTION WIDTH 14.8 % (11.5-14.5)
[2017-05-05 05:35] LABS: WHITE BLOOD COUNT 7.3 10^3/ul (4.8-10.8)
[2017-05-05] MEDS: LEVOTHYROXINE 75 MCG TAB PO (05:38)
[2017-05-05 06:01] LABS: ANION GAP 10 (8-16); BLOOD UREA NITROGEN 18 mg/dl (7-20); CALCIUM 8.8 mg/dl (8.4-10.2); CARBON DIOXIDE 31 mmol/L (21-31); CHLORIDE 101 mmol/L (97-110); CREATININE 0.67 mg/dl (0.44-1.00); GLUCOSE 90 mg/dl (70-220); POTASSIUM 3.7 mmol/L (3.5-5.1); SODIUM 138 mmol/L (135-144)
[2017-05-05] MEDS: INSULIN ASPART [NOVOLOG] 3 ML PEN SC ×4 (09:11→21:00)
[2017-05-05] MEDS: HYDROCORTISONE 5 MG TAB PO ×3 (09:11→20:19)
[2017-05-05] MEDS: FLUDROCORTISONE 0.1 MG TAB PO (09:12)
[2017-05-05] MEDS: LINAGLIPTIN 5 MG TABLET PO (09:12)
[2017-05-05] MEDS: SALMETEROL/FLUTICASONE 250/50 INHA INH ×2 (09:12→20:19)
[2017-05-05] MEDS: CHOLESTYRAMINE 4 GM PACKET PO (09:12)
[2017-05-05] MEDS: TIOTROPIUM 18 MCG CAPSULE INHA DEV INH (14:04)
[2017-05-05] MEDS: VERAPAMIL (SR) 180 MG TAB PO (20:21)
[2017-05-06] MEDS: ACCU-CHEK XX (01:56)
[2017-05-06 05:12] LABS: ADD MAN DIFF? NO
[2017-05-06 05:18] LABS: WHITE BLOOD COUNT 7.9 10^3/ul (4.8-10.8)
[2017-05-06 05:18] LABS: BASOPHILS % 0.5 % (0.0-2.0); EOSINOPHILS # 0.1 10^3/ul (0.0-0.5); EOSINOPHILS % 1.3 % (0.0-7.0); LYMPHOCYTES # 1.9 10^3/ul (0.8-2.9); LYMPHOCYTES % 23.9 % (15.0-51.0); MEAN CORPUSCULAR HEMOGLOBIN 28.7 pg (29.0-33.0); MEAN CORPUSCULAR HGB CONC 33.3 g/dl (32.0-37.0); MEAN CORPUSCULAR VOLUME 86.2 fl (82.0-101.0); MEAN PLATELET VOLUME 9.6 fl (7.4-10.4); MONOCYTE # 0.8 10^3/ul (0.3-0.9); MONOCYTES % 10.2 % (0.0-11.0); NEUTROPHILS % 63.3 % (39.0-77.0); PLATELET COUNT 514 10^3/UL (140-415); RED BLOOD COUNT 3.48 10^6/ul (4.20-5.40); RED CELL DISTRIBUTION WIDTH 14.8 % (11.5-14.5)
[2017-05-06 05:41] LABS: ANION GAP 13 (8-16); BLOOD UREA NITROGEN 19 mg/dl (7-20); CALCIUM 8.5 mg/dl (8.4-10.2); CARBON DIOXIDE 28 mmol/L (21-31); CHLORIDE 103 mmol/L (97-110); CREATININE 0.55 mg/dl (0.44-1.00); GLUCOSE 95 mg/dl (70-220); POTASSIUM 3.6 mmol/L (3.5-5.1); SODIUM 140 mmol/L (135-144)
[2017-05-06] MEDS: LEVOTHYROXINE 75 MCG TAB PO (05:56)
[2017-05-06] MEDS: INSULIN ASPART [NOVOLOG] 3 ML PEN SC ×4 (07:50→21:00)
[2017-05-06] MEDS: HYDROCORTISONE 5 MG TAB PO ×3 (08:36→20:51)
[2017-05-06] MEDS: LINAGLIPTIN 5 MG TABLET PO (08:36)
[2017-05-06] MEDS: FLUDROCORTISONE 0.1 MG TAB PO (08:36)
[2017-05-06] MEDS: SALMETEROL/FLUTICASONE 250/50 INHA INH ×2 (08:39→20:49)
[2017-05-06] MEDS: TIOTROPIUM 18 MCG CAPSULE INHA DEV INH (08:39)
[2017-05-06] MEDS: CHOLESTYRAMINE 4 GM PACKET PO (08:39)
[2017-05-06] MEDS: VERAPAMIL (SR) 180 MG TAB PO (20:50)
[2017-05-07] MEDS: ACCU-CHEK XX (00:07)
[2017-05-07] MEDS: LEVOTHYROXINE 75 MCG TAB PO (06:46)
[2017-05-07] MEDS: HYDROCORTISONE 5 MG TAB PO ×3 (06:47→21:43)
[2017-05-07] MEDS: INSULIN ASPART [NOVOLOG] 3 ML PEN SC ×4 (07:50→21:00)
[2017-05-07] MEDS: SALMETEROL/FLUTICASONE 250/50 INHA INH ×2 (08:18→21:42)
[2017-05-07] MEDS: TIOTROPIUM 18 MCG CAPSULE INHA DEV INH (08:19)
[2017-05-07] MEDS: FLUDROCORTISONE 0.1 MG TAB PO (08:19)
[2017-05-07] MEDS: CHOLESTYRAMINE 4 GM PACKET PO (08:20)
[2017-05-07] MEDS: LINAGLIPTIN 5 MG TABLET PO (08:20)
[2017-05-07] MEDS: VERAPAMIL (SR) 180 MG TAB PO (21:47)
[2017-05-08] MEDS: ACCU-CHEK XX (01:39)
[2017-05-08] MEDS: LEVOTHYROXINE 75 MCG TAB PO (06:00)
[2017-05-08] MEDS: INSULIN ASPART [NOVOLOG] 3 ML PEN SC ×4 (07:50→21:00)
[2017-05-08] MEDS: LINAGLIPTIN 5 MG TABLET PO (08:40)
[2017-05-08] MEDS: TIOTROPIUM 18 MCG CAPSULE INHA DEV INH (08:41)
[2017-05-08] MEDS: FLUDROCORTISONE 0.1 MG TAB PO (08:41)
[2017-05-08] MEDS: HYDROCORTISONE 5 MG TAB PO ×3 (08:42→20:58)
[2017-05-08] MEDS: SALMETEROL/FLUTICASONE 250/50 INHA INH ×2 (08:42→20:58)
[2017-05-08] MEDS: CHOLESTYRAMINE 4 GM PACKET PO (08:42)
[2017-05-08] MEDS: VERAPAMIL (SR) 180 MG TAB PO (21:00)
[2017-05-09] MEDS: ACETAMINOPHEN 325 MG TAB PO (01:35)
[2017-05-09] MEDS: ACCU-CHEK XX (02:00)
[2017-05-09 05:31] LABS: ADD MAN DIFF? NO
[2017-05-09 05:32] LABS: BASOPHIL # 0.1 10^3/ul (0.0-0.1); BASOPHILS % 0.8 % (0.0-2.0); EOSINOPHILS # 0.1 10^3/ul (0.0-0.5); EOSINOPHILS % 1.4 % (0.0-7.0); HEMATOCRIT 30.9 % (37.0-47.0); HEMOGLOBIN 10.2 g/dl (12.0-16.0); LYMPHOCYTES # 1.9 10^3/ul (0.8-2.9); LYMPHOCYTES % 21.6 % (15.0-51.0); MEAN CORPUSCULAR HEMOGLOBIN 29.1 pg (29.0-33.0); MEAN PLATELET VOLUME 9.8 fl (7.4-10.4); MONOCYTE # 0.9 10^3/ul (0.3-0.9); MONOCYTES % 10.4 % (0.0-11.0); NEUTROPHIL # 5.7 10^3/ul (1.6-7.5); NEUTROPHILS % 65.5 % (39.0-77.0); PLATELET COUNT 505 10^3/UL (140-415); RED BLOOD COUNT 3.51 10^6/ul (4.20-5.40); RED CELL DISTRIBUTION WIDTH 15.2 % (11.5-14.5)
[2017-05-09 05:32] LABS: WHITE BLOOD COUNT 8.6 10^3/ul (4.8-10.8)
[2017-05-09] MEDS: LEVOTHYROXINE 75 MCG TAB PO (06:17)
[2017-05-09] MEDS: HYDROCORTISONE 5 MG TAB PO ×3 (06:18→20:51)
[2017-05-09 06:20] LABS: ANION GAP 11 (8-16); BLOOD UREA NITROGEN 22 mg/dl (7-20); CALCIUM 8.5 mg/dl (8.4-10.2); CARBON DIOXIDE 27 mmol/L (21-31); CHLORIDE 106 mmol/L (97-110); CREATININE 0.61 mg/dl (0.44-1.00); GLUCOSE 106 mg/dl (70-220); MAGNESIUM 1.6 mg/dl (1.7-2.5); PHOSPHORUS 3.1 mg/dl (2.5-4.9); POTASSIUM 3.3 mmol/L (3.5-5.1); SODIUM 141 mmol/L (135-144)
[2017-05-09] MEDS: INSULIN ASPART [NOVOLOG] 3 ML PEN SC ×4 (07:50→20:56)
[2017-05-09] MEDS: SALMETEROL/FLUTICASONE 250/50 INHA INH ×2 (08:36→20:51)
[2017-05-09] MEDS: LINAGLIPTIN 5 MG TABLET PO (08:37)
[2017-05-09] MEDS: FLUDROCORTISONE 0.1 MG TAB PO (08:37)
[2017-05-09] MEDS: CHOLESTYRAMINE 4 GM PACKET PO (08:38)
[2017-05-09] MEDS: TIOTROPIUM 18 MCG CAPSULE INHA DEV INH (08:38)
[2017-05-09] MEDS: POTASSIUM CHLORIDE (SR) 20 MEQ TAB PO (12:06)
[2017-05-09] MEDS: MAGNESIUM SULFATE 2 GM/50 ML 50 ML IVPB (13:02)
[2017-05-09] MEDS: VERAPAMIL (SR) 180 MG TAB PO (20:53)
[2017-05-10] MEDS: ACCU-CHEK XX ×2 (02:00→22:03)
[2017-05-10] MEDS: HYDROCORTISONE 5 MG TAB PO ×2 (06:29→18:27)
[2017-05-10] MEDS: LEVOTHYROXINE 75 MCG TAB PO (06:29)
[2017-05-10 07:11] LABS: ANION GAP 11 (8-16); BLOOD UREA NITROGEN 18 mg/dl (7-20); CALCIUM 8.6 mg/dl (8.4-10.2); CARBON DIOXIDE 27 mmol/L (21-31); CHLORIDE 106 mmol/L (97-110); CREATININE 0.54 mg/dl (0.44-1.00); GLUCOSE 89 mg/dl (70-220); MAGNESIUM 1.9 mg/dl (1.7-2.5); PHOSPHORUS 3.2 mg/dl (2.5-4.9); POTASSIUM 3.6 mmol/L (3.5-5.1); SODIUM 140 mmol/L (135-144)
[2017-05-10] MEDS: SALMETEROL/FLUTICASONE 250/50 INHA INH ×2 (09:06→20:29)
[2017-05-10] MEDS: CHOLESTYRAMINE 4 GM PACKET PO (09:06)
[2017-05-10] MEDS: TIOTROPIUM 18 MCG CAPSULE INHA DEV INH (09:07)
[2017-05-10] MEDS: FLUDROCORTISONE 0.1 MG TAB PO (09:07)
[2017-05-10] MEDS: LINAGLIPTIN 5 MG TABLET PO (09:07)
[2017-05-10] MEDS: INSULIN ASPART [NOVOLOG] 3 ML PEN SC ×4 (09:08→21:00)
[2017-05-10] MEDS: POTASSIUM CHLORIDE (SR) 20 MEQ TAB PO (09:11)
[2017-05-10] MEDS: VERAPAMIL (SR) 180 MG TAB PO (20:29)
[2017-05-11] MEDS: LEVOTHYROXINE 88 MCG TAB PO (05:53)
[2017-05-11] MEDS: HYDROCORTISONE 5 MG TAB PO (07:20)
[2017-05-11] MEDS: INSULIN ASPART [NOVOLOG] 3 ML PEN SC (07:50)
[2017-05-11] MEDS: TIOTROPIUM 18 MCG CAPSULE INHA DEV INH (08:35)
[2017-05-11] MEDS: SALMETEROL/FLUTICASONE 250/50 INHA INH (08:35)
[2017-05-11] MEDS: FLUDROCORTISONE 0.1 MG TAB PO (08:35)
[2017-05-11] MEDS: LINAGLIPTIN 5 MG TABLET PO (08:36)
[2017-05-11] MEDS: CHOLESTYRAMINE 4 GM PACKET PO (08:36)
== END 2017-05-11 08:39 | disposition home health service (06) | DRG 872 ==
LOC: MS1 22:41 → E/R 11:27 → MS1 04-25 20:45 → TEL 15:17
PROVIDERS: Family Medicine
DX: A41.9 Sepsis, unspecified organism (principal); N17.9 Acute kidney failure, unspecified; E87.2 Acidosis; F32.2 Major depressive disorder, single episode, severe without psychotic features; E27.2 Addisonian crisis; E27.1 Primary adrenocortical insufficiency; N39.0 Urinary tract infection, site not specified; R65.20 Severe sepsis without septic shock; E83.42 Hypomagnesemia; E09.65 Drug or chemical induced diabetes mellitus with hyperglycemia; E87.6 Hypokalemia; E03.9 Hypothyroidism, unspecified; E53.8 Deficiency of other specified B group vitamins; F32.9 Major depressive disorder, single episode, unspecified; D64.9 Anemia, unspecified; R53.81 Other malaise; K52.9 Noninfective gastroenteritis and colitis, unspecified; B96.1 Klebsiella pneumoniae [K. pneumoniae] as the cause of diseases classified elsewhere; I10 Essential (primary) hypertension; Z88.0 Allergy status to penicillin
CPT/HCPCS: 36415; 71010; 74176; 76700; 80048; 80053; 81001; 82533; 82607; 82728; 82962; 83036; 83540; 83605; 83735; 84100; 84132; 84439; 84443; 84484; 85025; 85610; 85730; 87040; 87045; 87075; 87081; 87086; 87400; 93005; 93306; 94640; 94664; 96374; 96375; 97003; 97110; 97116; 97163; 97166; 97530; 97535; 99291-25

== ENCOUNTER 2018-11-05 16:19 | Inpatient (IN) | payer MEDICARE, BC ==
[2018-11-05 16:57] LABS: ADD MAN DIFF? NO
[2018-11-05 16:59] LABS: WHITE BLOOD COUNT 8.5 10^3/ul (4.8-10.8)
[2018-11-05 16:59] LABS: BASOPHILS % 0.5 % (0.0-2.0); EOSINOPHILS % 0.2 % (0.0-7.0); HEMOGLOBIN 13.1 g/dl (12.0-16.0); LYMPHOCYTES # 1.6 10^3/ul (0.8-2.9); LYMPHOCYTES % 19.3 % (15.0-51.0); MEAN CORPUSCULAR HEMOGLOBIN 30.6 pg (29.0-33.0); MEAN CORPUSCULAR HGB CONC 33.6 g/dl (32.0-37.0); MEAN CORPUSCULAR VOLUME 91.1 fl (82.0-101.0); MEAN PLATELET VOLUME 10.5 fl (7.4-10.4); MONOCYTE # 0.3 10^3/ul (0.3-0.9); MONOCYTES % 3.4 % (0.0-11.0); NEUTROPHIL # 6.5 10^3/ul (1.6-7.5); NEUTROPHILS % 76.4 % (39.0-77.0); PLATELET COUNT 242 10^3/UL (140-415); RED BLOOD COUNT 4.28 10^6/ul (4.20-5.40); RED CELL DISTRIBUTION WIDTH 13.5 % (11.5-14.5)
[2018-11-05 17:17] LABS: ALANINE AMINOTRANSFERASE 51 IU/L (13-69); ALBUMIN 4.1 g/dl (3.3-4.9); ALBUMIN/GLOBULIN RATIO 1.51; ALKALINE PHOSPHATASE 74 IU/L (42-121); ANION GAP 9 (5-13); ASPARTATE AMINO TRANSFERASE 51 IU/L (15-46); BILIRUBIN,INDIRECT 0.5 mg/dl (0-1.1); BILIRUBIN,TOTAL 0.5 mg/dl (0.2-1.3); BLOOD UREA NITROGEN 17 mg/dl (7-20); CALCIUM 9.8 mg/dl (8.4-10.2); CARBON DIOXIDE 27 mmol/L (21-31); CHLORIDE 104 mmol/L (97-110); CREATININE 0.68 mg/dl (0.44-1.00); GLUCOSE 161 mg/dl (70-220); POTASSIUM 4.2 mmol/L (3.5-5.1); SODIUM 140 mmol/L (135-144); TOTAL PROTEIN 6.8 g/dl (6.1-8.1)
[2018-11-05 17:18] LABS: INR 0.95; PROTIME 12.8 Sec (11.9-14.9)
[2018-11-05 17:19] LABS: PARTIAL THROMBOPLASTIN TIME 25.6 Sec (23.0-35.0)
[2018-11-05] MEDS: HYDROCORTISONE 100 MG INJ IV (17:23)
[2018-11-05] MEDS: SODIUM CHLORIDE 0.9% 1L BAG IV* (17:23)
[2018-11-05 17:28] LABS: TROPONIN-I < 0.012 ng/ml (0.000-0.120)
[2018-11-05] MEDS: AZTREONAM 1 GM/NS (PMX) 50 ML IVPB (17:31)
[2018-11-05] MEDS: VANCOMYCIN 1 GM (PMX) 250 ML IVPB (18:14)
[2018-11-05] MEDS ORDERED: ONDANSETRON 4 MG INJ IV (19:00)
[2018-11-05] MEDS ORDERED: HYDROCODONE/APAP (5/325) TAB PO (19:30)
[2018-11-05] MEDS ORDERED: NACL 0.9% 3 ML SYG IV (19:30)
[2018-11-05] MEDS: HYDROCORTISONE 5 MG TAB PO (21:40)
[2018-11-05] MEDS: ACETAMINOPHEN 325 MG TAB PO (23:27)
[2018-11-06 05:58] LABS: ADD MAN DIFF? NO
[2018-11-06 06:10] LABS: BASOPHILS % 0.2 % (0.0-2.0); HEMATOCRIT 38.5 % (37.0-47.0); HEMOGLOBIN 12.5 g/dl (12.0-16.0); LYMPHOCYTES # 1.9 10^3/ul (0.8-2.9); LYMPHOCYTES % 21.8 % (15.0-51.0); MEAN CORPUSCULAR HEMOGLOBIN 30.3 pg (29.0-33.0); MEAN CORPUSCULAR HGB CONC 32.5 g/dl (32.0-37.0); MEAN CORPUSCULAR VOLUME 93.2 fl (82.0-101.0); MEAN PLATELET VOLUME 10.8 fl (7.4-10.4); MONOCYTE # 0.5 10^3/ul (0.3-0.9); MONOCYTES % 5.2 % (0.0-11.0); NEUTROPHIL # 6.3 10^3/ul (1.6-7.5); NEUTROPHILS % 72.6 % (39.0-77.0); PLATELET COUNT 244 10^3/UL (140-415); RED BLOOD COUNT 4.13 10^6/ul (4.20-5.40); RED CELL DISTRIBUTION WIDTH 13.4 % (11.5-14.5)
[2018-11-06 06:10] LABS: WHITE BLOOD COUNT 8.7 10^3/ul (4.8-10.8)
[2018-11-06] MEDS: ACETAMINOPHEN 325 MG TAB PO (06:13)
[2018-11-06] MEDS: LEVOTHYROXINE 50 MCG TAB PO (06:13)
[2018-11-06 06:40] LABS: ALANINE AMINOTRANSFERASE 43 IU/L (13-69); ALBUMIN 3.3 g/dl (3.3-4.9); ALBUMIN/GLOBULIN RATIO 1.32; ALKALINE PHOSPHATASE 62 IU/L (42-121); ANION GAP 7 (5-13); ASPARTATE AMINO TRANSFERASE 40 IU/L (15-46); BILIRUBIN,INDIRECT 0.5 mg/dl (0-1.1); BILIRUBIN,TOTAL 0.5 mg/dl (0.2-1.3); BLOOD UREA NITROGEN 19 mg/dl (7-20); CALCIUM 8.9 mg/dl (8.4-10.2); CARBON DIOXIDE 27 mmol/L (21-31); CHLORIDE 107 mmol/L (97-110); CREATININE 0.67 mg/dl (0.44-1.00); GLUCOSE 135 mg/dl (70-220); POTASSIUM 3.4 mmol/L (3.5-5.1); SODIUM 141 mmol/L (135-144); TOTAL PROTEIN 5.8 g/dl (6.1-8.1)
[2018-11-06 06:46] LABS: CREATINE KINASE 43 IU/L (23-200)
[2018-11-06 07:04] LABS: FREE THYROXINE INDEX (Calc) 1.45 ug/ml (0.65-3.89); T3 UPTAKE 32.2 % (23.5-40.5); T4 (THYROXINE) 4.5 ug/dl (5.5-11.0)
[2018-11-06 07:44] LABS: HEMOGLOBIN A1C 5.8 % (0-5.9)
[2018-11-06] MEDS: FLUDROCORTISONE 0.1 MG TAB PO (09:12)
[2018-11-06] MEDS: HYDROCORTISONE 5 MG TAB PO ×2 (09:12→21:26)
[2018-11-06] MEDS: ENOXAPARIN 30 MG/0.3 ML SYG SC (09:20)
[2018-11-06 14:52] LABS: THYROID STIMULATING HORMONE 0.936 MIU/L (0.465-4.680)
[2018-11-06 16:39] LABS: D-DIMER 375.47 ng/ml (<460)
[2018-11-07] MEDS: LEVOTHYROXINE 50 MCG TAB PO (06:47)
[2018-11-07] MEDS: FLUDROCORTISONE 0.1 MG TAB PO (09:06)
[2018-11-07] MEDS: HYDROCORTISONE 5 MG TAB PO (09:06)
[2018-11-07] MEDS: ENOXAPARIN 30 MG/0.3 ML SYG SC (09:20)
[2018-11-07 12:05] LABS: MAGNESIUM 1.6 mg/dl (1.7-2.5)
[2018-11-07] MEDS: POTASSIUM CHLORIDE (SR) 20 MEQ TAB PO (12:12)
[2018-11-07] MEDS: MAGNESIUM OXIDE 400 MG TAB PO (16:21)
[2018-11-07] MEDS: CYANOCOBALAMIN 1000 MCG INJ IM (17:21)
== END 2018-11-07 17:45 | disposition home or self-care (01) | DRG 309 ==
LOC: E/R 16:19 → 6WM 20:40
DX: R00.0 Tachycardia, unspecified (principal); E27.1 Primary adrenocortical insufficiency; E03.9 Hypothyroidism, unspecified; M79.10 Myalgia, unspecified site; I44.5 Left posterior fascicular block
CPT/HCPCS: 71045; 71250; 80053; 82550; 83036; 83605; 83735; 84436; 84443; 84479; 84484; 85025; 85378; 85610; 85730; 87040-91; 93005; 93306; 93970; 96374; 96375; 97161; 99285-25